=== PATIENT | male | born 1945 | race Caucasian/White ===

== ENCOUNTER 2019-02-16 12:05 | Emergency (ER) | payer BC, OTHER ==
[2019-02-16 12:32] VITALS: BP 151/82; PULSE 92; TEMP 98.4; BMI 26.6
[2019-02-16] MEDS ORDERED: ACETAMINOPHEN 500 MG TABLET (FP) PO ONE (12:39)
--- NOTE | 2019-02-16 12:47 | PDOC ---
History of Present Illness - General Chief Complaint: Pain Stated Complaint: RT LEG PAIN Time Seen by Provider: 02/16/19 12:25 History Source: Patient Exam Limitations: No Limitations - History of Present Illness Initial Comments: 02/16/19 12:40 HISTORY OF PRESENT ILLNESS: This a 74-year-old otherwise healthy male who presents emergency department for evaluation of right lower leg pain since 01/19. Patient reports he was at work and was pushing a heavy cart when it suddenly stopped. Patient reported feeling a sharp pain to the lateral side of his right lower leg. Patient was seen in another hospital twice for reevaluation but has not had follow-up with his primary doctor. Patient reports he got x-rays at the other hospital and was given ascription for pain medicine. Patient has not been taking his Percocet as prescribed as it makes him dizzy and he doesn't like the feeling of the dizziness. Skin take in ibuprofen and steroids with minimal relief of pain. Patient states is an appointment with a heel painter on 04/22. No recent travel or sick contacts. PAST MEDICAL HISTORY: Denies past medical history SURGICAL HISTORY: Denies ALLERGIES: No known drug allergies REVIEW OF SYSTEMS General/Constitutional: Denies fever or chills. Denies weakness, weight change. HEENT: Denies change in vision. Denies ear pain or discharge. Denies sore throat. Cardiovascular: Denies chest pain or shortness of breath. Respiratory: Denies cough, wheezing, or hemoptysis. Gastrointestinal: Denies nausea, vomiting, diarrhea or constipation. Denies rectal bleeding. Genitourinary: Denies dysuria, frequency, or change in urination. Musculoskeletal: see HPI Skin and breasts: Denies rash or easy bruising. Neurologic: Denies headache, vertigo, loss of consciousness, or loss of sensation. Psychiatric: Denies depression or anxiety. Endocrine: Denies increased thirst. Denies abnormal weight change. Hematologic/Lymphatic: Denies anemia, easy bleeding, or history of blood clots. Allergic/Immunologic: Denies hives or skin allergy. Denies latex allergy. PHYSICAL EXAM General Appearance: Well-appearing, appropriately dressed. No apparent distress , no intoxication. Respiratory/Chest: Lungs CTAB. No shortness of breath, chest tenderness, respiratory distress, accessory muscle use. No crackles, rales, rhonchi, stridor , wheezing, dullness Cardiovascular: RRR. S1, S2. No JVD, murmur, bradycardia, tachycardia. Vascular Pulses: Dorsalis-Pedis (R): 2+, Dorsalis-Pedis (L): 2+ Musculoskeletal/Extremities: Normal inspection. FROM of all extremities, normal capillary refill. Right lower extremity tender to palpation over the calf and lateral aspect of the lower leg. Increased tenderness in the pulpal till region. No palpable masses or cysts noted. No bony tenderness, crepitus or step-off is present. No subcutaneous emphysema is present. Integumentary: Appropriate color, dry, warm. No cyanosis, erythema, jaundice or rash Past History - Past Medical History Allergies/Adverse Reactions: Allergies Allergy/AdvReac Type Severity Reaction Status Date / Time No Known Allergies Allergy Verified 02/16/19 12:20 COPD: No Disorders: Yes (bph) - Suicide/Smoking/Psychosocial Hx Smoking History: Current every day smoker Have you smoked in the past 12 months: Yes Number of Cigarettes Smoked Daily: 3 Information on smoking cessation initiated: Yes Hx Alcohol Use: No Drug/Substance Use Hx: No *Physical Exam - Vital Signs Last Vital Signs Temp Pulse Resp BP Pulse Ox 98.4 F 92 H 20 151/82 99 02/16/19 12:21 02/16/19 12:21 02/16/19 12:21 02/16/19 12:21 02/16/19 12:21 Medical Decision Making - Medical Decision Making 02/16/19 13:06 A/P: 74-year-old male with right lower leg pain for one month. Previous ER visits revealed no fracture but patient had no ultrasound performed No palpable cords, erythema or swelling present to the right calf Pain is likely muscular in nature the given tenderness in the calf I will get a Duplex Doppler of the right leg to rule out thrombus or Mir cyst Discharge home 02/16/19 13:22 Ultrasound as read by Dr. Woods: There is no sonographic evidence of deep vein thrombosis. If there is clinical concern for possible isolated calf DVT or physical clinical diagnoses bonk obligated superficial thrombophlebitis and correlation with close follow-up sonography is suggested. I discussed the physical exam findings, ancillary test results and final diagnoses with the patient. I answered all of the patient's questions. The patient was satisfied with the care received and felt comfortable with the discharge plan and treatment plan. The patient will call their primary care physician within 24 hours to arrange follow-up and will return to the Emergency Department with any new, persistent or worsening symptoms. Portions of this note have been documented using voice recognition software. As a result, errors may occur in the train control technician process. Effort has been made to correct all grammatical and train control technician error, but some may have been missed. 02/16/19 13:24 *DC/Admit/Observation/Transfer Diagnosis at time of Disposition: Pain in right lower leg - Discharge Dispostion Disposition: HOME Condition at time of disposition: Fair Decision to Admit order: No - Referrals Referrals: Dorcas Bishop [Primary Care Provider] - Mal Mon MD [Staff Physician] - - Patient Instructions Additional Instructions: Take previously prescribed pain medication as directed. You've been given a referral for an orthopedist. Call to schedule an appointment. Keep all previously scheduled appointments. Return to the emergency department for new or worsening symptoms. Thank you very much for choosing us to provide your emergent health care needs. - Post Discharge Activity
[2019-02-16] MEDS ORDERED: ACETAMINOPHEN 500 MG TABLET (FP) ONE (12:48)
== END 2019-02-16 13:20 | disposition home or self-care (01) ==
LOC: JERFT 12:05
DX: M79.661 Pain in right lower leg (principal)
CPT/HCPCS: 93971-TC; 99281-25

== ENCOUNTER 2021-02-08 04:25 | Day surgery (SDC) | payer BC ==
[2021-02-04 12:02] VITALS: BMI 21.7
[2021-02-08] MEDS ORDERED: PROPOFOL 20 ML ONE ×2 (07:26)
[2021-02-08] MEDS ORDERED: ONDANSETRON 4 MG/2 ML VIAL IVPUSH PRN (10:17)
[2021-02-08] MEDS ORDERED: ACETAMINOPHEN 325 MG TABLET (FP) PO PRN (10:17)
[2021-02-08] MEDS ORDERED: LACTATED RINGERS SOLUTION 1,000 ML IV SCH (10:30)
[2021-02-08 12:16] VITALS: BP 140/75; PULSE 60; TEMP 98.3
== END 2021-02-08 12:00 | disposition home or self-care (01) ==
LOC: JASU-SURG 04:25
PROVIDERS: ATTEND Urology
PROC: 0TF3XZZ Fragmentation in Right Kidney Pelvis, External Approach (ICD-10-PCS; principal; 2021-02-08 09:30)
DX: N20.0 Calculus of kidney (principal)
CPT/HCPCS: 93005; 93010; 94760

== ENCOUNTER 2023-01-21 08:20 | Emergency (ER) | payer OTHER ==
[2023-01-21 08:37] VITALS: BP 153/68; PULSE 92; RESP 18; TEMP 98.2; BMI 21.9
[2023-01-21] MEDS ORDERED: KETOROLAC TROMETHAMINE 30 MG/1 ML VIAL IM ONE (09:00)
[2023-01-21] MEDS ORDERED: KETOROLAC TROMETHAMINE 30 MG/1 ML VIAL ONE (09:03)
[2023-01-21] MEDS ORDERED: CYCLOBENZAPRINE HCL 5 MG TABLET ONE (09:03)
[2023-01-21] MEDS ORDERED: CYCLOBENZAPRINE HCL 5 MG TABLET PO ONE (09:05)
[2023-01-21 10:10] LABS: EPI CELLS 5 /uL (0-25.1); HYALINE CASTS 0 /uL (0-3.1); URINE APPEARANCE CLEAR; URINE BACTERIA 1 /uL (0-1359); URINE BILIRUBIN NEGATIVE (NEGATIVE); URINE COLOR YELLOW; URINE GLUCOSE (UA) NEGATIVE (NEGATIVE); URINE KETONE NEGATIVE (NEGATIVE); URINE LEUK ESTERASE TRACE (NEGATIVE); URINE NITRITE NEGATIVE (NEGATIVE); URINE PROTEIN NEGATIVE (NEGATIVE); URINE RBC 70 /uL (0-23.9); URINE WBC 19 /uL (0-25.8)
== END 2023-01-21 10:42 | disposition home or self-care (01) ==
LOC: JER 08:20 → JERFT 08:20
PROC: 3E0233Z Introduction of Anti-inflammatory into Muscle, Percutaneous Approach (ICD-10-PCS; principal; 2023-01-21)
DX: M54.42 Lumbago with sciatica, left side (principal); X50.0XXA Overexertion from strenuous movement or load, initial encounter
CPT/HCPCS: 72100-TC-FY; 81003; 87086; 87186; 96375; 99284-25

== ENCOUNTER 2024-04-26 06:54 | Inpatient (IN) | payer OTHER ==
[2024-04-26 08:18] LABS: EPI CELLS >36 /uL (0-25.1); HYALINE CASTS 146 /uL (0-3.1); PH,URINE 8.5 (5.0-8.0); URINE APPEARANCE TURBID; URINE BACTERIA >9,000 /uL (0-1359); URINE BILIRUBIN NEGATIVE (NEGATIVE); URINE COLOR DK YELLOW; URINE GLUCOSE (UA) NEGATIVE (NEGATIVE); URINE KETONE NEGATIVE (NEGATIVE); URINE LEUK ESTERASE 3+ (NEGATIVE); URINE NITRITE NEGATIVE (NEGATIVE); URINE PROTEIN 4+ (NEGATIVE); URINE WBC 10167 /uL (0-25.8)
[2024-04-26] MEDS ORDERED: CEFTRIAXONE 1 GM/50 ML BAG ONE (08:35)
[2024-04-26] MEDS: CEFTRIAXONE 1 GM in DEXTROSE 5%-WATER - 100 ML IVPB ONE (08:41)
[2024-04-26 09:08] LABS: URINE RBC 202 /uL (0-23.9)
[2024-04-26 09:10] LABS: BASO % 0.3 % (0-2.0); EOS % 0.3 % (0-4.5); HEMATOCRIT 35.6 % (35.4-49); HEMOGLOBIN 11.8 GM/dL (11.7-16.9); LYMPH % 2.6 % (8-40); MCH 32.6 pg (25.7-33.7); MCHC 33.3 g/dl (32.0-35.9); MEAN CELL VOLUME 97.9 fl (80-96); MEAN PLT VOLUME 7.8 fl (7.5-11.1); MONO % 9.1 % (3.8-10.2); NEUT % 87.7 % (42.8-82.8); PLATELET COUNT 312 10^3/uL (134-434); RBC 3.63 M/mm3 (4.00-5.60); RDW 13.1 % (11.9-15.9)
[2024-04-26 09:17] LABS: URINE CRYSTALS PRESENT /hpf
[2024-04-26 09:18] LABS: YEAST NONE SEEN (NEGATIVE)
[2024-04-26 09:23] LABS: POTASSIUM 5.2 mmol/L (3.5-5.1)
[2024-04-26 09:25] LABS: BLOOD UREA NITROGEN 32.1 mg/dL (7-18); CALCIUM 9.3 mg/dL (8.5-10.1)
[2024-04-26 09:26] LABS: MAGNESIUM 2.1 mg/dL (1.8-2.4)
[2024-04-26 09:29] LABS: CREATININE 1.6 mg/dL (0.55-1.3)
[2024-04-26 09:30] LABS: BILIRUBIN,TOTAL 0.7 mg/dL (0.2-1); TOT PROT 6.5 g/dl (6.4-8.2)
[2024-04-26] MEDS ORDERED: ACETAMINOPHEN 325 MG TABLET (FP) PO PRN (09:57)
[2024-04-26] MEDS: SODIUM CHLORIDE 0.9% 500 ML INFUS.BAG IV ONE (10:19)
[2024-04-26] MEDS ORDERED: ACETAMINOPHEN 1000 MG/100 ML BAG IVPB PRN (11:46)
[2024-04-26] MEDS: PANTOPRAZOLE 40 MG TABLET PO SCH (11:58)
[2024-04-26] MEDS: TAMSULOSIN HCL 0.4 MG CAP PO SCH (11:59)
[2024-04-26] MEDS: DEXTROSE 5%-0.45% SALINE 1,000 ML IV SCH (12:34)
[2024-04-26] MEDS ORDERED: PANTOPRAZOLE SODIUM 40 MG VIAL ONE (12:36)
[2024-04-26] MEDS: PANTOPRAZOLE SODIUM 40 MG VIAL IVPUSH SCH (12:43)
[2024-04-26] MEDS: HEPARIN NA (PORCINE) 5,000 UNITS/ML 1ML VIAL SQ SCH (14:49)
[2024-04-26 15:25] VITALS: BMI 19.0
[2024-04-27 09:18] LABS: BASO % 0.5 % (0-2.0); HEMATOCRIT 34.4 % (35.4-49); HEMOGLOBIN 11.5 GM/dL (11.7-16.9); LYMPH % 9.8 % (8-40); MCH 33.1 pg (25.7-33.7); MCHC 33.5 g/dl (32.0-35.9); MEAN CELL VOLUME 98.7 fl (80-96); MEAN PLT VOLUME 8.7 fl (7.5-11.1); MONO % 9.8 % (3.8-10.2); NEUT % 76.9 % (42.8-82.8); PLATELET COUNT 320 10^3/uL (134-434); RBC 3.49 M/mm3 (4.00-5.60); RDW 13.1 % (11.9-15.9); WHITE BLOOD COUNT 8.5 K/mm3 (4.0-10.0)
[2024-04-27 09:25] LABS: POTASSIUM 4.1 mmol/L (3.5-5.1)
[2024-04-27 09:33] LABS: CALCIUM 9.1 mg/dL (8.5-10.1)
[2024-04-27 09:37] LABS: CREATININE 0.8 mg/dL (0.55-1.3)
[2024-04-27] MEDS: CEFTRIAXONE 2 GM-D5W BAG 2 GM/50 ML BAG IVPB SCH (09:57)
[2024-04-27] MEDS: BISACODYL 10 MG SUPP.RECT PR ONE (10:46)
[2024-04-27] MEDS: POLYETHYLENE GLYCOL (HEALTHYLAX) 3350 17 GM PACKET PO SCH (10:46)
[2024-04-27] MEDS: DEXTROSE 5%-0.45% SALINE 1,000 ML IV SCH (10:47)
[2024-04-27] MEDS: DOCUSATE NA 100 MG/10 ML UNIT-DOSE CUPS GT SCH (13:18)
[2024-04-27] MEDS ORDERED: DOCUSATE SODIUM 100 MG CAPSULE (FP) PO SCH (14:00)
[2024-04-27] MEDS: MINERAL OIL ENEMA 133 ML ENEMA RC ONE (14:14)
[2024-04-28] MEDS ORDERED: MAGNESIUM HYDROX 2400MG/30ML ORAL SUSPENSION 30 ML CUP PO ONE (09:02)
[2024-04-28] MEDS ORDERED: MINERAL OIL 30 ML UNIT-DOSE CUP PO ONE (09:03)
[2024-04-28] MEDS: MINERAL OIL 30 ML UNIT-DOSE CUP PO ONE (09:16)
[2024-04-28] MEDS: MAGNESIUM HYDROX 2400MG/30ML ORAL SUSPENSION 30 ML CUP PO ONE (09:18)
[2024-04-28 09:25] LABS: EOS % 5.3 % (0-4.5); HEMATOCRIT 34.8 % (35.4-49); HEMOGLOBIN 11.6 GM/dL (11.7-16.9); LYMPH % 15.4 % (8-40); MCH 32.6 pg (25.7-33.7); MCHC 33.3 g/dl (32.0-35.9); MEAN CELL VOLUME 97.9 fl (80-96); MEAN PLT VOLUME 7.8 fl (7.5-11.1); MONO % 13.3 % (3.8-10.2); PLATELET COUNT 389 10^3/uL (134-434); RBC 3.55 M/mm3 (4.00-5.60); WHITE BLOOD COUNT 5.2 K/mm3 (4.0-10.0)
[2024-04-28 09:45] LABS: POTASSIUM 4.1 mmol/L (3.5-5.1)
[2024-04-28 09:51] LABS: CALCIUM 9.3 mg/dL (8.5-10.1)
[2024-04-28 09:52] LABS: BLOOD UREA NITROGEN 9.7 mg/dL (7-18)
[2024-04-28 09:55] LABS: CREATININE 0.9 mg/dL (0.55-1.3)
[2024-04-28] MEDS ORDERED: ERTAPENEM SODIUM 1 GM in SODIUM CHLORIDE 50 ML IVPB SCH (10:00)
[2024-04-28] MEDS: MINERAL OIL 30 ML UNIT-DOSE CUP GT ONE (10:28)
[2024-04-28] MEDS: HEPARIN NA (PORCINE) 5,000 UNITS/ML 1ML VIAL SQ SCH (10:29)
[2024-04-28] MEDS: BISACODYL 10 MG SUPP.RECT PR ONE (10:29)
[2024-04-28] MEDS: MAGNESIUM HYDROX 2400MG/30ML ORAL SUSPENSION 30 ML CUP GT ONE (10:38)
[2024-04-28] MEDS: ERTAPENEM SODIUM 1 GM in SODIUM CHLORIDE 50 ML IVPB SCH (11:40)
[2024-04-28] MEDS: DEXTROSE 5%-0.45% SALINE 1,000 ML IV SCH (14:59)
[2024-04-28] MEDS: guaiFENesin/CODEINE 10 ML UNIT-DOSE CUPS GT PRN (15:00)
[2024-04-29 09:55] LABS: BASO % 0.7 % (0-2.0); EOS % 6.1 % (0-4.5); HEMATOCRIT 37.2 % (35.4-49); HEMOGLOBIN 12.6 GM/dL (11.7-16.9); MCH 32.9 pg (25.7-33.7); MCHC 33.9 g/dl (32.0-35.9); MEAN PLT VOLUME 7.8 fl (7.5-11.1); MONO % 11.2 % (3.8-10.2); PLATELET COUNT 451 10^3/uL (134-434); RBC 3.84 M/mm3 (4.00-5.60); RDW 13.1 % (11.9-15.9); WHITE BLOOD COUNT 4.7 K/mm3 (4.0-10.0)
[2024-04-29 10:02] LABS: POTASSIUM 4.1 mmol/L (3.5-5.1)
[2024-04-29 10:05] LABS: BLOOD UREA NITROGEN 11.3 mg/dL (7-18)
[2024-04-29 10:08] LABS: CALCIUM 9.2 mg/dL (8.5-10.1)
[2024-04-29 10:09] LABS: CREATININE 0.9 mg/dL (0.55-1.3)
[2024-04-29 13:04] VITALS: BP 109/70; PULSE 82; RESP 20; TEMP 989
== END 2024-04-29 13:15 | disposition home or self-care (01) | DRG 690 ==
LOC: JER 06:54 → JERBED 09:28 → J8W 14:21
PROVIDERS: ADMIT Internal Medicine; ATTEND Internal Medicine
DX: N39.0 Urinary tract infection, site not specified (principal); E44.0 Moderate protein-calorie malnutrition; N17.9 Acute kidney failure, unspecified; R64 Cachexia; Z16.12 Extended spectrum beta lactamase (ESBL) resistance; Z68.1 Body mass index [BMI] 19.9 or less, adult; I10 Essential (primary) hypertension; E86.0 Dehydration; R33.9 Retention of urine, unspecified; E78.5 Hyperlipidemia, unspecified; R31.0 Gross hematuria; N40.1 Benign prostatic hyperplasia with lower urinary tract symptoms; K59.00 Constipation, unspecified; B96.4 Proteus (mirabilis) (morganii) as the cause of diseases classified elsewhere
CPT/HCPCS: 36415; 80048; 80053; 81003; 83735; 85025; 87040; 87086; 87186; 87481; 93005; 93010; 97116-GP; 97161-GP; 99285-25; J1644

== ENCOUNTER 2024-05-06 12:39 | Inpatient (IN) | payer OTHER ==
[2024-05-06] MEDS ORDERED: methylPREDNISolone NA SUCC 125 MG/2 ML VIAL ONE (13:00)
[2024-05-06] MEDS ORDERED: MAGNESIUM SULFATE IN WATER 2 GM/50 ML IVPB IVPB ONE (13:00)
[2024-05-06] MEDS: MAGNESIUM SULF 50% (8.12 MEQ/2 ML-1 GM VIAL) IVPB ONE (13:11)
[2024-05-06] MEDS: ALBUTEROL SO4 2.5/IPRATROPIUM 0.5 INH SOL 3 ML VIAL.NEB. NEB ONE (13:11)
[2024-05-06] MEDS: methylPREDNISolone NA SUCC 125 MG/2 ML VIAL IVPB ONE (13:11)
[2024-05-06 13:14] VITALS: BMI 19.1
[2024-05-06 13:31] LABS: BASO % 0.1 % (0-2.0); EOS % 0.6 % (0-4.5); HEMATOCRIT 36.9 % (35.4-49); HEMOGLOBIN 12.7 GM/dL (11.7-16.9); LYMPH % 5.1 % (8-40); MCH 33.9 pg (25.7-33.7); MCHC 34.5 g/dl (32.0-35.9); MEAN CELL VOLUME 98.3 fl (80-96); MEAN PLT VOLUME 7.5 fl (7.5-11.1); MONO % 5.4 % (3.8-10.2); NEUT % 88.8 % (42.8-82.8); PLATELET COUNT 483 10^3/uL (134-434); RBC 3.75 M/mm3 (4.00-5.60); RDW 14.4 % (11.9-15.9); WHITE BLOOD COUNT 12.5 K/mm3 (4.0-10.0)
[2024-05-06 13:36] LABS: VENOUS BASE EXCESS 1.5 mmol/L (-2-2); VENOUS O2 SATURATION 41.6 % (70-80); VENOUS PCO2 61.7 mmHg (38-52); VENOUS PH 7.298 (7.310-7.410)
[2024-05-06 13:38] LABS: INR 1.01 (0.83-1.09); PROTHROMBIN TIME (PATIENT) 11.6 SEC (9.7-13.0)
[2024-05-06 13:41] LABS: ACTIVATED PTT 29.1 SECONDS (25.2-36.5)
[2024-05-06] MEDS ORDERED: CEFEPIME 2 GM/100 ML BAG IVPB ONE (13:52)
[2024-05-06] MEDS: CEFEPIME HCL 2 GM VIAL (RESTRICTED TO ID) IVPB ONE (13:53)
[2024-05-06 13:59] LABS: CALCIUM 9.8 mg/dL (8.5-10.1)
[2024-05-06 14:00] LABS: ALBUMIN 3.4 g/dl (3.4-5.0); BLOOD UREA NITROGEN 28.1 mg/dL (7-18)
[2024-05-06 14:03] LABS: BILIRUBIN,TOTAL 0.6 mg/dL (0.2-1); CREATININE 1.1 mg/dL (0.55-1.3); TOT PROT 7.2 g/dl (6.4-8.2)
[2024-05-06 14:10] LABS: LACTIC ACID 2.4 mmol/L (0.4-2.0)
[2024-05-06 14:42] LABS: EPI CELLS >36 /uL (0-25.1); HYALINE CASTS 4 /uL (0-3.1); URINE APPEARANCE CLEAR; URINE BACTERIA 37 /uL (0-1359); URINE BILIRUBIN NEGATIVE (NEGATIVE); URINE COLOR YELLOW; URINE GLUCOSE (UA) NEGATIVE (NEGATIVE); URINE KETONE NEGATIVE (NEGATIVE); URINE LEUK ESTERASE 1+ (NEGATIVE); URINE NITRITE NEGATIVE (NEGATIVE); URINE PROTEIN 1+ (NEGATIVE); URINE RBC 1194 /uL (0-23.9); URINE UROBILINOGEN 0.2 mg/dL (0.2-1.0); URINE WBC 99 /uL (0-25.8)
[2024-05-06] MEDS ORDERED: VANCOMYCIN 1 GRAM (PRE-DOCKED) 1,000 MG/250 ML BAG IVPB ONE (16:07)
[2024-05-06] MEDS: VANCOMYCIN 1,000 MG in DEXTROSE 5%-WATER - 250 ML IVPB ONE (16:07)
[2024-05-06] MEDS ORDERED: PANTOPRAZOLE 40 MG TABLET PO ONE (16:10)
[2024-05-06] MEDS ORDERED: HEPARIN NA (PORCINE) 5,000 UNITS/ML 1ML VIAL ONE ×2 (16:10→22:08)
[2024-05-06] MEDS: HEPARIN NA (PORCINE) 5,000 UNITS/ML 1ML VIAL SQ SCH (16:11)
[2024-05-06] MEDS: PANTOPRAZOLE 40 MG TABLET PO SCH (16:11)
[2024-05-06] MEDS: LACTATED RINGERS SOLUTION 1000 ML INFUS.BAG IV ONE (17:42)
[2024-05-06] MEDS: D5-1/2NS+10 MEQ KCL - 10 MEQ/1,000 ML INFUS.BAG IV SCH ×2 (19:14→20:02)
[2024-05-06] MEDS ORDERED: ACETAMINOPHEN 325 MG TABLET (FP) PO PRN (19:54)
[2024-05-07] MEDS ORDERED: HEPARIN NA (PORCINE) 5,000 UNITS/ML 1ML VIAL ONE (06:36)
[2024-05-07] MEDS: AZITHROMYCIN IVPB 500 MG/250 ML BAG IVPB SCH (18:14)
[2024-05-07] MEDS: ERTAPENEM SODIUM 1 GM in SODIUM CHLORIDE 50 ML IVPB SCH (19:53)
[2024-05-08] MEDS: methylPREDNISolone NA SUCC 40 MG/1 ML VIAL IVPUSH SCH (14:19)
[2024-05-08 15:02] LABS: BASO % 0.4 % (0-2.0); EOS % 1.5 % (0-4.5); HEMATOCRIT 39.9 % (35.4-49); HEMOGLOBIN 13.1 GM/dL (11.7-16.9); LYMPH % 13.8 % (8-40); MCH 32.5 pg (25.7-33.7); MCHC 32.9 g/dl (32.0-35.9); MEAN CELL VOLUME 98.8 fl (80-96); MEAN PLT VOLUME 8.2 fl (7.5-11.1); MONO % 8.1 % (3.8-10.2); NEUT % 76.2 % (42.8-82.8); PLATELET COUNT 411 10^3/uL (134-434); RBC 4.04 M/mm3 (4.00-5.60); RDW 14.4 % (11.9-15.9); WHITE BLOOD COUNT 6.4 K/mm3 (4.0-10.0)
[2024-05-08] MEDS: D5-1/2NS+10 MEQ KCL - 10 MEQ/1,000 ML INFUS.BAG IV SCH (15:15)
[2024-05-08 15:23] LABS: CALCIUM 9.6 mg/dL (8.5-10.1)
[2024-05-08 15:29] LABS: BLOOD UREA NITROGEN 23.7 mg/dL (7-18)
[2024-05-08 15:34] LABS: LACTIC ACID 2.6 mmol/L (0.4-2.0)
[2024-05-09] MEDS: D5-1/2NS+10 MEQ KCL - 10 MEQ/1,000 ML INFUS.BAG IV SCH (02:44)
[2024-05-09 07:56] LABS: BASO % 0.6 % (0-2.0); EOS % 0.1 % (0-4.5); HEMATOCRIT 40.6 % (35.4-49); HEMOGLOBIN 13.2 GM/dL (11.7-16.9); LYMPH % 7.5 % (8-40); MCH 32.8 pg (25.7-33.7); MCHC 32.5 g/dl (32.0-35.9); MEAN CELL VOLUME 100.8 fl (80-96); MEAN PLT VOLUME 7.6 fl (7.5-11.1); MONO % 7.3 % (3.8-10.2); NEUT % 84.5 % (42.8-82.8); PLATELET COUNT 367 10^3/uL (134-434); RBC 4.03 M/mm3 (4.00-5.60); WHITE BLOOD COUNT 10.5 K/mm3 (4.0-10.0)
[2024-05-09 08:14] LABS: POTASSIUM 4.8 mmol/L (3.5-5.1)
[2024-05-09 08:15] LABS: CALCIUM 9.4 mg/dL (8.5-10.1)
[2024-05-09 08:16] LABS: BLOOD UREA NITROGEN 22.4 mg/dL (7-18); MAGNESIUM 2.1 mg/dL (1.8-2.4)
[2024-05-09 08:19] LABS: CREATININE 0.8 mg/dL (0.55-1.3)
[2024-05-09 08:48] LABS: LACTIC ACID 2.5 mmol/L (0.4-2.0)
[2024-05-10 09:16] LABS: BLOOD UREA NITROGEN 22.2 mg/dL (7-18); CALCIUM 9.7 mg/dL (8.5-10.1)
[2024-05-10 09:19] LABS: LACTIC ACID 3.4 mmol/L (0.4-2.0)
[2024-05-10 09:20] LABS: CREATININE 0.9 mg/dL (0.55-1.3)
[2024-05-10] MEDS: D5-1/2NS+10 MEQ KCL - 10 MEQ/1,000 ML INFUS.BAG IV SCH (10:49)
[2024-05-10] MEDS: PANTOPRAZOLE SODIUM 40 MG VIAL IVPUSH SCH (10:51)
[2024-05-10 11:08] LABS: BASO % 0.4 % (0-2.0); EOS % 0.7 % (0-4.5); HEMATOCRIT 37.7 % (35.4-49); HEMOGLOBIN 12.6 GM/dL (11.7-16.9); LYMPH % 15.4 % (8-40); MCH 33.4 pg (25.7-33.7); MCHC 33.4 g/dl (32.0-35.9); MONO % 10.4 % (3.8-10.2); NEUT % 73.1 % (42.8-82.8); PLATELET COUNT 320 10^3/uL (134-434); RBC 3.77 M/mm3 (4.00-5.60); RDW 14.3 % (11.9-15.9); WHITE BLOOD COUNT 7.4 K/mm3 (4.0-10.0)
[2024-05-11 07:09] LABS: BASO % 0.2 % (0-2.0); EOS % 0.2 % (0-4.5); HEMATOCRIT 36.5 % (35.4-49); LYMPH % 9.3 % (8-40); MCHC 32.9 g/dl (32.0-35.9); MEAN CELL VOLUME 100.5 fl (80-96); MEAN PLT VOLUME 8.3 fl (7.5-11.1); MONO % 10.1 % (3.8-10.2); NEUT % 80.2 % (42.8-82.8); PLATELET COUNT 269 10^3/uL (134-434); RBC 3.63 M/mm3 (4.00-5.60); RDW 13.8 % (11.9-15.9); WHITE BLOOD COUNT 8.2 K/mm3 (4.0-10.0)
[2024-05-11 07:29] LABS: POTASSIUM 4.5 mmol/L (3.5-5.1)
[2024-05-11 07:30] LABS: CALCIUM 9.1 mg/dL (8.5-10.1)
[2024-05-11 07:31] LABS: BLOOD UREA NITROGEN 21.7 mg/dL (7-18)
[2024-05-11 07:34] LABS: CREATININE 0.7 mg/dL (0.55-1.3)
[2024-05-11] MEDS: D5-1/2NS+10 MEQ KCL - 10 MEQ/1,000 ML INFUS.BAG IV SCH (09:38)
[2024-05-11] MEDS: AZITHROMYCIN IVPB 500 MG/250 ML BAG IVPB SCH (09:39)
[2024-05-13 09:05] LABS: BASO % 0.2 % (0-2.0); EOS % 0.7 % (0-4.5); HEMATOCRIT 40.3 % (35.4-49); HEMOGLOBIN 12.9 GM/dL (11.7-16.9); MCH 32.5 pg (25.7-33.7); MCHC 32.1 g/dl (32.0-35.9); MEAN CELL VOLUME 101.3 fl (80-96); MEAN PLT VOLUME 8.9 fl (7.5-11.1); MONO % 10.9 % (3.8-10.2); NEUT % 72.2 % (42.8-82.8); PLATELET COUNT 262 10^3/uL (134-434); RBC 3.97 M/mm3 (4.00-5.60)
[2024-05-13 09:24] LABS: POTASSIUM 4.4 mmol/L (3.5-5.1)
[2024-05-13 09:26] LABS: BLOOD UREA NITROGEN 20.3 mg/dL (7-18); CALCIUM 9.7 mg/dL (8.5-10.1)
[2024-05-13 09:29] LABS: CREATININE 0.8 mg/dL (0.55-1.3)
[2024-05-13 23:11] VITALS: RESP 16
[2024-05-14] MEDS: D5-1/2NS+10 MEQ KCL - 10 MEQ/1,000 ML INFUS.BAG IV SCH (06:44)
[2024-05-14 14:35] VITALS: BP 117/68; TEMP 98.4
[2024-05-14 16:14] VITALS: PULSE 62
== END 2024-05-14 18:05 | disposition home or self-care (01) | DRG 193 ==
LOC: JER 12:39 → JERBED 14:51 → J4S 05-07 08:30
PROVIDERS: ADMIT Internal Medicine; ATTEND Internal Medicine
DX: J18.9 Pneumonia, unspecified organism (principal); J96.21 Acute and chronic respiratory failure with hypoxia; J96.22 Acute and chronic respiratory failure with hypercapnia; E87.20 Acidosis, unspecified; J90 Pleural effusion, not elsewhere classified; I10 Essential (primary) hypertension; N40.0 Benign prostatic hyperplasia without lower urinary tract symptoms; E78.5 Hyperlipidemia, unspecified; E86.0 Dehydration; Z93.0 Tracheostomy status; Z93.1 Gastrostomy status; Z85.01 Personal history of malignant neoplasm of esophagus
CPT/HCPCS: 0241U-QW; 36415; 71045-TC-FY; 71250-TC; 74018-TC-FY; 80048; 80053; 81003; 82803; 82962; 83605; 83735; 84484; 85025; 85610; 85730; 86850; 86900; 86901; 87040; 87070; 87086; 87205; 87899; 93005; 93010; 97116-GP; 97161-GP; 99285-25; J1644

== ENCOUNTER 2024-06-09 12:14 | Observation (INO) | payer OTHER ==
[2024-06-09 12:27] VITALS: RESP 18
[2024-06-09 14:04] LABS: BASO % 0.3 % (0-2.0); EOS % 2.5 % (0-4.5); HEMATOCRIT 44.3 % (35.4-49); HEMOGLOBIN 14.6 GM/dL (11.7-16.9); LYMPH % 12.1 % (8-40); MCH 33.5 pg (25.7-33.7); MEAN CELL VOLUME 101.4 fl (80-96); MEAN PLT VOLUME 8.4 fl (7.5-11.1); MONO % 10.5 % (3.8-10.2); NEUT % 74.6 % (42.8-82.8); PLATELET COUNT 373 10^3/uL (134-434); RBC 4.37 M/mm3 (4.00-5.60); WHITE BLOOD COUNT 6.1 K/mm3 (4.0-10.0)
[2024-06-09 14:05] LABS: EPI CELLS 1 /uL (0-25.1); HYALINE CASTS 5 /uL (0-3.1); URINE APPEARANCE CLEAR; URINE BACTERIA 1400 /uL (0-1359); URINE BILIRUBIN NEGATIVE (NEGATIVE); URINE COLOR DK YELLOW; URINE GLUCOSE (UA) NEGATIVE (NEGATIVE); URINE KETONE TRACE (NEGATIVE); URINE LEUK ESTERASE 1+ (NEGATIVE); URINE NITRITE NEGATIVE (NEGATIVE); URINE PROTEIN 2+ (NEGATIVE); URINE UROBILINOGEN 0.2 mg/dL (0.2-1.0); URINE WBC 147 /uL (0-25.8)
[2024-06-09 14:20] LABS: CHLORIDE 107 mmol/L (98-107); SODIUM 138 mmol/L (136-145)
[2024-06-09 14:22] LABS: URINE RBC 396 /uL (0-23.9); YEAST PRESENT (NEGATIVE)
[2024-06-09 14:22] LABS: ALBUMIN 3.4 g/dl (3.4-5.0); CALCIUM 9.4 mg/dL (8.5-10.1); CO2 30 mmol/L (21-32); GLUCOSE,RANDOM 99 mg/dL (74-106)
[2024-06-09 14:23] LABS: BLOOD UREA NITROGEN 22.3 mg/dL (7-18)
[2024-06-09 14:25] LABS: SGOT/AST 84 U/L (15-37)
[2024-06-09 14:27] LABS: BILIRUBIN,TOTAL 0.5 mg/dL (0.2-1); TOT PROT 7.4 g/dl (6.4-8.2)
[2024-06-09 14:28] LABS: ALK PHOS 114 U/L (45-117)
[2024-06-09 14:31] LABS: ANION GAP 1 mmol/L (4-13); POTASSIUM 7.1 mmol/L (3.5-5.1); SGPT/ALT 32 U/L (13-61)
[2024-06-09] MEDS ORDERED: MEROPENEM 1 GM in DEXTROSE 5%-WATER 100 ML IVPB ONE (15:39)
[2024-06-09 15:53] LABS: INR 0.96 (0.83-1.09); PROTHROMBIN TIME (PATIENT) 11.1 SEC (9.7-13.0)
[2024-06-09 15:55] LABS: ACTIVATED PTT 34.8 SECONDS (25.2-36.5)
[2024-06-09 16:09] LABS: POTASSIUM 5.3 mmol/L (3.5-5.1)
[2024-06-09 16:11] LABS: CALCIUM 9.3 mg/dL (8.5-10.1)
[2024-06-09 16:12] LABS: ALBUMIN 3.2 g/dl (3.4-5.0); BLOOD UREA NITROGEN 22.7 mg/dL (7-18)
[2024-06-09 16:15] LABS: CREATININE 1.1 mg/dL (0.55-1.3)
[2024-06-09] MEDS ORDERED: PANTOPRAZOLE 40 MG TABLET PO SCH (16:15)
[2024-06-09 16:16] LABS: BILIRUBIN,TOTAL 0.5 mg/dL (0.2-1); TOT PROT 6.3 g/dl (6.4-8.2)
[2024-06-09] MEDS ORDERED: PANTOPRAZOLE SODIUM 40 MG VIAL ONE (16:16)
[2024-06-09] MEDS: D5-1/2NS+10 MEQ KCL - 10 MEQ/1,000 ML INFUS.BAG IV SCH (16:20)
[2024-06-09] MEDS: PANTOPRAZOLE SODIUM 40 MG VIAL IVPUSH SCH (16:30)
[2024-06-09 18:08] LABS: EPI CELLS 16 /uL (0-25.1); HYALINE CASTS 2 /uL (0-3.1); URINE APPEARANCE TURBID; URINE BILIRUBIN 2+ (NEGATIVE); URINE COLOR RED; URINE GLUCOSE (UA) NEGATIVE (NEGATIVE); URINE PROTEIN 2+ (NEGATIVE); URINE RBC 658 /uL (0-23.9); URINE UROBILINOGEN 0.2 mg/dL (0.2-1.0); URINE WBC 2 /uL (0-25.8)
[2024-06-09 18:43] VITALS: BMI 19.5
[2024-06-10 09:18] LABS: EOS % 4.8 % (0-4.5); HEMATOCRIT 37.3 % (35.4-49); HEMOGLOBIN 12.7 GM/dL (11.7-16.9); LYMPH % 24.6 % (8-40); MCH 33.5 pg (25.7-33.7); MCHC 34.1 g/dl (32.0-35.9); MEAN CELL VOLUME 98.2 fl (80-96); MEAN PLT VOLUME 8.6 fl (7.5-11.1); MONO % 12.6 % (3.8-10.2); PLATELET COUNT 290 10^3/uL (134-434); RDW 14.2 % (11.9-15.9); WHITE BLOOD COUNT 4.4 K/mm3 (4.0-10.0)
[2024-06-10 09:28] LABS: URINE BACTERIA 658 /uL (0-1359)
[2024-06-10 10:45] LABS: POTASSIUM 4.2 mmol/L (3.5-5.1)
[2024-06-10 10:46] LABS: CALCIUM 8.8 mg/dL (8.5-10.1)
[2024-06-10 10:47] LABS: BLOOD UREA NITROGEN 12.8 mg/dL (7-18)
[2024-06-10 10:50] LABS: CREATININE 0.8 mg/dL (0.55-1.3)
[2024-06-10] MEDS: ACETAMINOPHEN 1000 MG/100 ML BAG IVPB PRN (12:09)
[2024-06-10 18:21] VITALS: TEMP 98.1
[2024-06-10 18:22] VITALS: BP 119/80; PULSE 81
== END 2024-06-10 18:32 | disposition home or self-care (01) ==
LOC: JER 12:14 → UNDOADMOB 14:40 → JERBED 14:40 → INTOOBSV 14:40 → J6S 15:58 → JERBED 18:06
PROVIDERS: ADMIT Internal Medicine; ATTEND Internal Medicine
PROC: 3E033GC Introduction of Other Therapeutic Substance into Peripheral Vein, Percutaneous Approach (ICD-10-PCS; 2024-06-09)
PROC: 0DHA3UZ Insertion of Feeding Device into Jejunum, Percutaneous Approach (ICD-10-PCS; principal; 2024-06-10)
DX: T85.528A Displacement of other gastrointestinal prosthetic devices, implants and grafts, initial encounter (principal); Y73.3 Surgical instruments, materials and gastroenterology and urology devices (including sutures) associated with adverse incidents; Y92.9 Unspecified place or not applicable; N39.0 Urinary tract infection, site not specified; M62.81 Muscle weakness (generalized); R79.89 Other specified abnormal findings of blood chemistry; R33.9 Retention of urine, unspecified; N17.9 Acute kidney failure, unspecified; Z93.1 Gastrostomy status; Z93.0 Tracheostomy status; Z85.01 Personal history of malignant neoplasm of esophagus
CPT/HCPCS: 36415; 49441; 80048; 80053; 81003; 85025; 85610; 85730; 86850; 86900; 86901; 87077; 87086; 87186; 93005; 93010; 96374; 99285-25; G0378; J0131

== ENCOUNTER 2024-07-09 00:24 | Inpatient (IN) | payer OTHER ==
[2024-07-09 00:33] VITALS: RESP 17; TEMP 97.9; BMI 20.5
[2024-07-09] MEDS: SODIUM CHLORIDE FOR INHALATION 3 ML VIAL.NEB IH ONE (01:32)
[2024-07-09 01:38] LABS: BASO % 0.4 % (0-2.0); EOS % 3.3 % (0-4.5); HEMATOCRIT 36.1 % (35.4-49); HEMOGLOBIN 12.2 GM/dL (11.7-16.9); LYMPH % 7.6 % (8-40); MCH 33.1 pg (25.7-33.7); MCHC 33.9 g/dl (32.0-35.9); MEAN CELL VOLUME 97.7 fl (80-96); MEAN PLT VOLUME 7.1 fl (7.5-11.1); MONO % 10.8 % (3.8-10.2); NEUT % 77.9 % (42.8-82.8); PLATELET COUNT 383 10^3/uL (134-434); RBC 3.69 M/mm3 (4.00-5.60); RDW 13.5 % (11.9-15.9); WHITE BLOOD COUNT 9.1 K/mm3 (4.0-10.0)
[2024-07-09 01:40] LABS: VENOUS BASE EXCESS 2.5 mmol/L (-2-2); VENOUS O2 SATURATION 24.1 % (70-80); VENOUS PCO2 48.3 mmHg (38-52); VENOUS PH 7.385 (7.310-7.410)
[2024-07-09 01:49] LABS: INR 1.04 (0.83-1.09); PROTHROMBIN TIME (PATIENT) 11.7 SEC (9.7-13.0)
[2024-07-09 01:52] LABS: ACTIVATED PTT 35.1 SECONDS (25.2-36.5)
[2024-07-09 02:10] LABS: POTASSIUM 4.5 mmol/L (3.5-5.1)
[2024-07-09 02:12] LABS: ALBUMIN 3.6 g/dl (3.4-5.0); BLOOD UREA NITROGEN 21.4 mg/dL (7-18); CALCIUM 9.6 mg/dL (8.5-10.1)
[2024-07-09 02:16] LABS: CREATININE 1.3 mg/dL (0.55-1.3)
[2024-07-09 02:17] LABS: BILIRUBIN,TOTAL 0.5 mg/dL (0.2-1); TOT PROT 7.1 g/dl (6.4-8.2)
[2024-07-09] MEDS ORDERED: PIPERACILLIN/TAZOB 4.5 GM 4.5 GM/100 ML BAG IVPB ONE (03:05)
[2024-07-09] MEDS: PIPERACILLIN/TAZOB 4.5 GM 4.5 GM in DEXTROSE 5%-WATER 100 ML IVPB ONE (03:06)
[2024-07-09] MEDS ORDERED: AZITHROMYCIN IVPB 500 MG/250 ML BAG IVPB ONE (03:21)
[2024-07-09] MEDS: AZITHROMYCIN IVPB 500 MG in DEXTROSE 5%-WATER - 250 ML IVPB ONE (03:25)
[2024-07-09 03:40] LABS: URINE APPEARANCE TURBID; URINE BILIRUBIN 2+ (NEGATIVE); URINE COLOR RED; URINE GLUCOSE (UA) NEGATIVE (NEGATIVE); URINE KETONE NEGATIVE (NEGATIVE); URINE LEUK ESTERASE 2+ (NEGATIVE); URINE NITRITE POSITIVE (NEGATIVE); URINE PROTEIN 1+ (NEGATIVE); URINE UROBILINOGEN 0.2 mg/dL (0.2-1.0)
[2024-07-09] MEDS: VANCOMYCIN 1,000 MG in DEXTROSE 5%-WATER - 250 ML IVPB ONE (04:35)
[2024-07-09] MEDS ORDERED: VANCOMYCIN 1 GM PREMIX (F) 1 GM/200 ML BAG ONE (04:35)
[2024-07-09] MEDS: HEPARIN NA (PORCINE) 5,000 UNITS/ML 1ML VIAL SQ SCH (08:55)
[2024-07-09] MEDS ORDERED: PANTOPRAZOLE SODIUM 40 MG VIAL ONE (09:42)
[2024-07-09] MEDS ORDERED: TAMSULOSIN HCL 0.4 MG CAP ONE (09:42)
[2024-07-09] MEDS ORDERED: amLODIPine BESYLATE 5 MG TABLET (FP) ONE (09:42)
[2024-07-09] MEDS: PANTOPRAZOLE SODIUM 40 MG VIAL IVPUSH SCH (09:59)
[2024-07-09] MEDS: amLODIPine BESYLATE 5 MG TABLET (FP) PO SCH (09:59)
[2024-07-09] MEDS: TAMSULOSIN HCL 0.4 MG CAP PO SCH (09:59)
[2024-07-09 10:01] VITALS: BP 116/67; PULSE 93
[2024-07-09] MEDS ORDERED: ATORVASTATIN CA 20 MG TABLET (FP) PO SCH (22:00)
== END 2024-07-09 11:23 | disposition home or self-care (01) | DRG 696 ==
LOC: JER 00:24 → JERBED 05:49
PROVIDERS: ADMIT Internal Medicine; ATTEND Internal Medicine
DX: R33.9 Retention of urine, unspecified (principal); R06.02 Shortness of breath; R31.9 Hematuria, unspecified; I10 Essential (primary) hypertension; E78.5 Hyperlipidemia, unspecified; N31.9 Neuromuscular dysfunction of bladder, unspecified; Z93.0 Tracheostomy status
CPT/HCPCS: 0241U-QW; 36415; 71045-TC-FY; 71250-TC; 74177-TC; 80053; 81003; 82803; 84484; 85025; 85610; 85730; 86850; 86900; 86901; 87086; 93005; 93010; 99285-25; Q9967